=== PATIENT | female | born 1935 | race Caucasian/White ===

== ENCOUNTER → 2017-04-18 | Outpatient (CLI) | payer MEDICARE, OTHER | DX: J44.9 Chronic obstructive pulmonary disease, unspecified (principal) ==

== ENCOUNTER 2017-05-10 20:00 | Outpatient (CLI) | payer MEDICARE, OTHER | END 2017-05-11 07:13 | disposition home or self-care (01) | LOC: SLEEP 20:00 → EDUNIT# 21:00 → SLEEP 05-11 07:13 | PROVIDERS: ATTEND Nurse Practitioner Family | DX: G47.34 Idiopathic sleep related nonobstructive alveolar hypoventilation (principal); R53.83 Other fatigue; I48.91 Unspecified atrial fibrillation; G47.10 Hypersomnia, unspecified | CPT/HCPCS: 95810 ==